=== PATIENT | male | born 1995 | race Hispanic/Latino ===

== ENCOUNTER 2021-12-16 19:55 | Emergency (ER) | payer BC, OTHER ==
[~2021-12-16] VITALS: Ht 170.2 cm; Wt 81.6 kg
[2021-12-16] MEDS ORDERED: IBUPROFEN 400 MG TAB ONE (20:59)
[2021-12-16] MEDS ORDERED: BACITRACIN ZINC 0.9GM TP ONE (21:00)
[2021-12-16] MEDS ORDERED: IBUPROFEN 400 MG TAB PO ONE (21:10)
[2021-12-16] MEDS ORDERED: NAPROSYN500 MG PO (21:28)
[2021-12-16] MEDS ORDERED: CYCLOBENZAPRINE10 MG PO (21:29)
[2021-12-16 21:58] VITALS: BP 142/97
== END 2021-12-16 22:12 | disposition home or self-care (01) ==
LOC: FSED 20:32
DX: S60.211A Contusion of right wrist, initial encounter (principal); S80.12XA Contusion of left lower leg, initial encounter; S40.812A Abrasion of left upper arm, initial encounter; V49.88XA Car occupant (driver) (passenger) injured in other specified transport accidents, initial encounter; Y92.488 Other paved roadways as the place of occurrence of the external cause; Z87.442 Personal history of urinary calculi; F17.210 Nicotine dependence, cigarettes, uncomplicated
CPT/HCPCS: 99283